=== PATIENT | male | born 1985 | race Two or more races ===

== ENCOUNTER 2016-12-07 10:50 | Emergency (ER) | payer OTHER ==
--- NOTE | 2016-12-07 12:20 | EDDOCDS ---
Physician Documentation [facility] Name: Arnie Del Real Age: 31 yrs Sex: Male : 1985 Arrival Date: 12/07/2016 Time: 10:50 Bed 30 Private MD: NO PRIMARY PHYSICIAN, . Disposition: 12/07/16 12:08 Discharged to Home/Self Care. Impression: Encounter for issue of repeat prescription, Pain in right shoulder - Chronic. - Condition is Stable. - Discharge Instructions: Medicine Refill at the Emergency Department. - Prescriptions for Seroquel 25 mg Oral tablet - take 1 tablet by ORAL route 3 times per day; 30 tablet. gabapentin 600 mg Oral tablet - take 1 tablet by ORAL route 3 times per day; 30 tablet. Symbicort 80- 4.5 mcg/actuation Inhalation HFA aerosol inhaler - inhale 2 puff by INHALATION route 2 times per day; 1 Inhaler. Hydroxyzine HCl 50 mg Oral Tablet - take 1 tablet by ORAL route 2 times per day As needed; 20 tablet. Lisinopril 5 mg Oral Tablet - take 1 tablet by ORAL route once daily; 30 tablet. Albuterol Sulfate 90 mcg/actuation Inhalation HFA Aerosol Inhaler - inhale 2 puff by INHALATION route every 4 hours As needed; 1 Inhaler. - Medication Reconciliation, Local Pharmacy Hours, Referral List Call for Appointment form. - [facility] ; When: 1 - 2 days; Reason: Recheck today's complaints, Continuance of care. Follow up: Emergency Department; Reason: Worsening of conditions. Follow up: Orthopaedics, [facility]; When: Call to arrange an appointment; Reason: Further diagnostic work-up, Recheck today's complaints, Continuance of care. - Problem is new. - Symptoms have improved. Historical: - Allergies: PENICILLINS; Ceclor; - Home Meds: 1. gabapentin 600 mg Oral Tb24 1 tabs three times a day needs refill 2. Seroquel 25 mg Oral tab 1 tab 3 times per day needs refill 3. Symbicort 80-4.5 mcg/actuation inhalation HFAA 2 times per day needs refill 4. ventolin inhaler as needed 5. lisinopril 5 mg Oral tab 1 tab once daily 6. hydroxyzine HCl 50 mg Oral tab twice a day prn - PMHx: Anxiety; Asthma; Hypertension; Seasonal Allergies; - PSHx: pilinoidal cystectomies; - Social history: Smoking status: Patient uses tobacco products, current every day smoker. No barriers to communication noted, The patient speaks fluent Georgian, Speaks appropriately for age. - Family history: No immediate family members are acutely ill. - : The pt / caregiver states he / she is not on anticoagulants. Home medication list is obtained from the patient. - Exposure Risk Screening:: None identified. Vital Signs: 12/07 10:52 BP 164 / 96; Pulse 110; Resp 20; Temp 98.3(O); Pulse Ox 99% on R/A; Weight 113.4 kg / elp 250 lbs (R); Height 5 ft. 8 in. (172.72 cm) (R); Pain 7/10; 12:18 BP 152 / 94; Pulse 96; Resp 20; Temp 98.1(T); Pulse Ox 99% on R/A; Pain 0/10; dwg 10:52 Body Mass Index 38.01 (113.40 kg, 172.72 cm) elp MDM: 11:27 REGULAR DIET PLASTIC WILBURN+DIET ordered. EDMS 12:07 Financial registration complete. 12:10 Recheck B/P ordered. ef1 Signatures: Dispatcher MedHost Sharath Grant RN RN dwg Michelson, Staci, RN RN srm Ganter, LoriLee, Reg Reg lg Mckenzie Corbin, PA-C PACarmina ef1 MTDD
--- NOTE | 2016-12-07 12:20 | EDDOCDS ---
Nurse's Notes [facility] Name: Arnie Del Real Age: 31 yrs Sex: Male : 1985 Arrival Date: 12/07/2016 Time: 10:50 Bed 30 Private MD: NO PRIMARY PHYSICIAN, . Diagnosis: Encounter for issue of repeat prescription;Pain in right shoulder-Chronic Presentation: 12/07 10:55 Presenting complaint: Patient states: right shoulder pain for a long time. was given srm gabapentin but has run out of meds ( multiple). has appt dec 30. for meds refill .pt states he is a recovering addict. recently moved here from [place]. . has been out of his anxiety meds and gabapentin a few days and states his anxiety is getting worse but denies SI or HI. Adult Sepsis Screening: The patient does not have new or worsening altered mentation. Patient's respiratory rate is less than 22. Systolic blood pressure is greater than 100. Patient has a qSOFA score of 0- Negative Sepsis Screen. Suicide/Homicide risk assessment- Patient denies SI and HI but presents with another emotional, behavioral or other mental health complaint. Status: Patient is not a creative services specialist or dependent. Transition of care: patient was not received from another setting of care. 10:55 Acuity: SIRIA Level 5 srm 10:55 Method Of Arrival: Walkin/Carried/Asstd [facility] Triage Assessment: 11:00 General: Appears in no apparent distress, Behavior is appropriate for age, cooperative. srm Pain: Pain currently is 7 out of 10 on a pain scale. 11:01 Pt Declines HIV testing. srm Historical: - Allergies: PENICILLINS; Ceclor; - Home Meds: 1. gabapentin 600 mg Oral Tb24 1 tabs three times a day needs refill 2. Seroquel 25 mg Oral tab 1 tab 3 times per day needs refill 3. Symbicort 80-4.5 mcg/actuation inhalation HFAA 2 times per day needs refill 4. ventolin inhaler as needed 5. lisinopril 5 mg Oral tab 1 tab once daily 6. hydroxyzine HCl 50 mg Oral tab twice a day prn - PMHx: Anxiety; Asthma; Hypertension; Seasonal Allergies; - PSHx: pilinoidal cystectomies; - Social history: Smoking status: Patient uses tobacco products, current every day smoker. No barriers to communication noted, The patient speaks fluent Pashto, Speaks appropriately for age. - Family history: No immediate family members are acutely ill. - : The pt / caregiver states he / she is not on anticoagulants. Home medication list is obtained from the patient. - Exposure Risk Screening:: None identified. Screenin:18 Screening information is obtained from the patient. Fall risk: No risks identified. dwg Assistance ADL's: requires no assistance with activities of daily living. Abuse/DV Screen: The patient / caregiver reports he/she is: not in a situation that causes fear, pain or injury. Nutritional screening: No deficits noted. Advance Directives: Currently, there is no health care proxy. There is no active DNR order. There is no living will. There is no Power of Carpenter Repairer. Advance directive information has not previously been placed in an [facility] medical record. Further advance directive information is declined. home support is adequate. Assessment: 12:18 General: Appears in no apparent distress, comfortable, Behavior is cooperative, dwg pleasant. Pain: Denies pain. Neurological: Level of Consciousness is awake, alert, Oriented to person, place, time. Respiratory: Airway is patent Respiratory effort is even, unlabored, Respiratory pattern is regular, symmetrical, Breath sounds are clear bilaterally. Vital Signs: 10:52 BP 164 / 96; Pulse 110; Resp 20; Temp 98.3(O); Pulse Ox 99% on R/A; Weight 113.4 kg elp (R); Height 5 ft. 8 in. (172.72 cm) (R); Pain 7/10; 12:18 BP 152 / 94; Pulse 96; Resp 20; Temp 98.1(T); Pulse Ox 99% on R/A; Pain 0/10; dwg 10:52 Body Mass Index 38.01 (113.40 kg, 172.72 cm) [facility] Vitals: 10:52 Log In Time: December 07, 2016 at 10:45. [facility] ED Course: 10:51 Patient visited by Irina Tavarez PCA. elp 10:51 NO PRIMARY PHYSICIAN, . is Private Physician. elp 10:51 Patient moved to Waiting elp 10:53 Patient visited by Irina Tavarez PCA. elp 10:53 Patient moved to Pre RCE elp 10:57 Triage Initiated srm 11:01 Patient moved to 30 [facility] 11:40 Mckenzie Corbin [facility] ef1 11:40 Malick Candelaria MD is Attending Physician. ef1 11:40 Patient visited by Mckenzie Corbin PA-C. ef1 12:08 [facility] is Referral Physician. [facility]. ef1 12:19 The patient / caregiver is instructed regarding the plan of care and ED course. dwg 12:19 No IV's were initiated during this patient's visit. No procedures done that require dwg assistance. Order Results: There are currently no results for this order. Outcome: 12:08 Discharge ordered by Provider. ef1 12:19 Discharge Assessment: Patient awake, alert and oriented x 3. No cognitive and/or dwg functional deficits noted. Patient verbalized understanding of disposition instructions. patient administered narcotics - no. The following High Risk Discharge criteria are identified: None. Discharged to home ambulatory. Condition: good Condition: stable. No special radiology studies were completed. Property sent home with patient. 12:19 Patient left the ED. dwg Signatures: Sharath Dillard, RN RN dwg Brea Anthony RN RN [facility] Mckenzie Corbin PA-C PA-C ef1 Irina Tavarez, LONNIE FILLER SIFTER HELPER elp MTDD
--- NOTE | 2016-12-09 13:20 | EDDOCDS ---
Physician Documentation [facility] Name: Arnie Duran Age: 31 yrs Sex: Male : 1985 Arrival Date: 12/07/2016 Time: 10:50 Bed 30 Private MD: NO PRIMARY PHYSICIAN, . Disposition: 12/07/16 12:08 Discharged to Home/Self Care. Impression: Encounter for issue of repeat prescription, Pain in right shoulder - Chronic. - Condition is Stable. - Discharge Instructions: Medicine Refill at the Emergency Department. - Prescriptions for Seroquel 25 mg Oral tablet - take 1 tablet by ORAL route 3 times per day; 30 tablet. gabapentin 600 mg Oral tablet - take 1 tablet by ORAL route 3 times per day; 30 tablet. Symbicort 80- 4.5 mcg/actuation Inhalation HFA aerosol inhaler - inhale 2 puff by INHALATION route 2 times per day; 1 Inhaler. Hydroxyzine HCl 50 mg Oral Tablet - take 1 tablet by ORAL route 2 times per day As needed; 20 tablet. Lisinopril 5 mg Oral Tablet - take 1 tablet by ORAL route once daily; 30 tablet. Albuterol Sulfate 90 mcg/actuation Inhalation HFA Aerosol Inhaler - inhale 2 puff by INHALATION route every 4 hours As needed; 1 Inhaler. - Medication Reconciliation, Local Pharmacy Hours, Referral List Call for Appointment form. - [facility] ; When: 1 - 2 days; Reason: Recheck today's complaints, Continuance of care. Follow up: Emergency Department; Reason: Worsening of conditions. Follow up: Orthopaedics, [facility]; When: Call to arrange an appointment; Reason: Further diagnostic work-up, Recheck today's complaints, Continuance of care. - Problem is new. - Symptoms have improved. Historical: - Allergies: PENICILLINS; Ceclor; - Home Meds: 1. gabapentin 600 mg Oral Tb24 1 tabs three times a day needs refill 2. Seroquel 25 mg Oral tab 1 tab 3 times per day needs refill 3. Symbicort 80-4.5 mcg/actuation inhalation HFAA 2 times per day needs refill 4. ventolin inhaler as needed 5. lisinopril 5 mg Oral tab 1 tab once daily 6. hydroxyzine HCl 50 mg Oral tab twice a day prn - PMHx: Anxiety; Asthma; Hypertension; Seasonal Allergies; - PSHx: pilinoidal cystectomies; - Social history: Smoking status: Patient uses tobacco products, current every day smoker. No barriers to communication noted, The patient speaks fluent Mauritian, Speaks appropriately for age. - Family history: No immediate family members are acutely ill. - : The pt / caregiver states he / she is not on anticoagulants. Home medication list is obtained from the patient. - Exposure Risk Screening:: None identified. Vital Signs: 12/07 10:52 BP 164 / 96; Pulse 110; Resp 20; Temp 98.3(O); Pulse Ox 99% on R/A; Weight 113.4 kg / elp 250 lbs (R); Height 5 ft. 8 in. (172.72 cm) (R); Pain 7/10; 12:18 BP 152 / 94; Pulse 96; Resp 20; Temp 98.1(T); Pulse Ox 99% on R/A; Pain 0/10; dwg 10:52 Body Mass Index 38.01 (113.40 kg, 172.72 cm) elp MDM: 11:27 REGULAR DIET PLASTIC WILBURN+DIET ordered. EDMS 12:07 Financial registration complete. lg 12:10 Recheck B/P ordered. ef1 12:26 [facility] Payment Agreement was scanned into EventWith and attached to record. lg 14:36 T-Sheet-- Draft Copy was scanned into EventWith and attached to record. gb Signatures: Dispatcher MedHost EDND Sharath Dillard RN RN Brea Chin RN RN [facility] Aimee Cagle, Reg Reg gb Anabelle Lopez, Reg Reg lg Mckenzie Corbin, PA-C PA-C ef1 The chart was reviewed and I authenticate all verbal orders and agree with the evaluation and treatment provided.Attachments: 12:26 [facility] Payment Agreement lg 14:36 T-Sheet-- Draft Copy gb Chart Complete MTDD
--- NOTE | 2016-12-09 13:20 | EDDOCDS ---
Nurse's Notes [facility] Name: Arnie Duran Age: 31 yrs Sex: Male : 1985 Arrival Date: 12/07/2016 Time: 10:50 Bed 30 Private MD: NO PRIMARY PHYSICIAN, . Diagnosis: Encounter for issue of repeat prescription;Pain in right shoulder-Chronic Presentation: 12/07 10:55 Presenting complaint: Patient states: right shoulder pain for a long time. was given srm gabapentin but has run out of meds ( multiple). has appt dec 30. for meds refill .pt states he is a recovering addict. recently moved here from [place]. . has been out of his anxiety meds and gabapentin a few days and states his anxiety is getting worse but denies SI or HI. Adult Sepsis Screening: The patient does not have new or worsening altered mentation. Patient's respiratory rate is less than 22. Systolic blood pressure is greater than 100. Patient has a qSOFA score of 0- Negative Sepsis Screen. Suicide/Homicide risk assessment- Patient denies SI and HI but presents with another emotional, behavioral or other mental health complaint. Status: Patient is not a service dismantler or dependent. Transition of care: patient was not received from another setting of care. 10:55 Acuity: SIRIA Level 5 [facility] 10:55 Method Of Arrival: Walkin/Carried/Asstd [facility] Triage Assessment: 11:00 General: Appears in no apparent distress, Behavior is appropriate for age, cooperative. srm Pain: Pain currently is 7 out of 10 on a pain scale. 11:01 Pt Declines HIV testing. srm Historical: - Allergies: PENICILLINS; Ceclor; - Home Meds: 1. gabapentin 600 mg Oral Tb24 1 tabs three times a day needs refill 2. Seroquel 25 mg Oral tab 1 tab 3 times per day needs refill 3. Symbicort 80-4.5 mcg/actuation inhalation HFAA 2 times per day needs refill 4. ventolin inhaler as needed 5. lisinopril 5 mg Oral tab 1 tab once daily 6. hydroxyzine HCl 50 mg Oral tab twice a day prn - PMHx: Anxiety; Asthma; Hypertension; Seasonal Allergies; - PSHx: pilinoidal cystectomies; - Social history: Smoking status: Patient uses tobacco products, current every day smoker. No barriers to communication noted, The patient speaks fluent Indonesian, Speaks appropriately for age. - Family history: No immediate family members are acutely ill. - : The pt / caregiver states he / she is not on anticoagulants. Home medication list is obtained from the patient. - Exposure Risk Screening:: None identified. Screenin:18 Screening information is obtained from the patient. Fall risk: No risks identified. dwg Assistance ADL's: requires no assistance with activities of daily living. Abuse/DV Screen: The patient / caregiver reports he/she is: not in a situation that causes fear, pain or injury. Nutritional screening: No deficits noted. Advance Directives: Currently, there is no health care proxy. There is no active DNR order. There is no living will. There is no Power of Cosmetics Machine Operator. Advance directive information has not previously been placed in an [facility] medical record. Further advance directive information is declined. home support is adequate. Assessment: 12:18 General: Appears in no apparent distress, comfortable, Behavior is cooperative, dwg pleasant. Pain: Denies pain. Neurological: Level of Consciousness is awake, alert, Oriented to person, place, time. Respiratory: Airway is patent Respiratory effort is even, unlabored, Respiratory pattern is regular, symmetrical, Breath sounds are clear bilaterally. Vital Signs: 10:52 BP 164 / 96; Pulse 110; Resp 20; Temp 98.3(O); Pulse Ox 99% on R/A; Weight 113.4 kg elp (R); Height 5 ft. 8 in. (172.72 cm) (R); Pain 7/10; 12:18 BP 152 / 94; Pulse 96; Resp 20; Temp 98.1(T); Pulse Ox 99% on R/A; Pain 0/10; dwg 10:52 Body Mass Index 38.01 (113.40 kg, 172.72 cm) [facility] Vitals: 10:52 Log In Time: December 07, 2016 at 10:45. [facility] ED Course: 10:51 Patient visited by Irina Tavarez PCA. elp 10:51 NO PRIMARY PHYSICIAN, . is Private Physician. elp 10:51 Patient moved to Waiting elp 10:53 Patient visited by Irina Tavarez PCA. elp 10:53 Patient moved to Pre RCE elp 10:57 Triage Initiated srm 11:01 Patient moved to 30 srm 11:40 [facility]ckenzie Corbin [facility] ef[facility] 11:40 Malick Candelaria MD is Attending Physician. ef1 11:40 Patient visited by Mckenzie Corbin PA-C. ef1 12:08 [facility] is Referral Physician. ef1 12:[facility] ef1 12:19 The patient / caregiver is instructed regarding the plan of care and ED course. dwg 12:19 No IV's were initiated during this patient's visit. No procedures done that require dwg assistance. 12:25 Patient name changed from Arnie\S\\S\D'hondt\S\ to Arnie\S\Cirilo\S\D'hondt. EDMS 12:26 [facility] Payment Agreement was scanned into [employer] and attached to record. lg 14:36 T-Sheet-- Draft Copy was scanned into [employer] and attached to record. gb 15:21 Patient name changed from Arnie\S\Cirilo\S\D'hondt\S\ to Arnie\S\Cirilo\S\Dhondt. EDMS Order Results: There are currently no results for this order. Outcome: 12:08 Discharge ordered by Provider. ef1 12:19 Discharge Assessment: Patient awake, alert and oriented x 3. No cognitive and/or dwg functional deficits noted. Patient verbalized understanding of disposition instructions. patient administered narcotics - no. The following High Risk Discharge criteria are identified: None. Discharged to home ambulatory. Condition: good Condition: stable. No special radiology studies were completed. Property sent home with patient. 12:19 Patient left the ED. dwg Signatures: Dispatcher MedHost EDMS Sharath Dillard, MARLENY FARMER dwBrea Chin RN RN [facility] Barrejit, Aimee, Reg Reg gb Anabelle Lopez, Reg Reg lg Mckenzie Corbin PA-C PA-C ef1 Irina Tavarez, LONNIE OFFICE MACHINE INSPECTOR elp Chart Complete MTDD
--- NOTE | 2016-12-09 13:20 | EDDOCDS ---
Physician Documentation [facility] Name: Arnie Duran Age: 31 yrs Sex: Male : 1985 Arrival Date: 12/07/2016 Time: 10:50 Bed 30 Private MD: NO PRIMARY PHYSICIAN, . Disposition: 12/07/16 12:08 Discharged to Home/Self Care. Impression: Encounter for issue of repeat prescription, Pain in right shoulder - Chronic. - Condition is Stable. - Discharge Instructions: Medicine Refill at the Emergency Department. - Prescriptions for Seroquel 25 mg Oral tablet - take 1 tablet by ORAL route 3 times per day; 30 tablet. gabapentin 600 mg Oral tablet - take 1 tablet by ORAL route 3 times per day; 30 tablet. Symbicort 80- 4.5 mcg/actuation Inhalation HFA aerosol inhaler - inhale 2 puff by INHALATION route 2 times per day; 1 Inhaler. Hydroxyzine HCl 50 mg Oral Tablet - take 1 tablet by ORAL route 2 times per day As needed; 20 tablet. Lisinopril 5 mg Oral Tablet - take 1 tablet by ORAL route once daily; 30 tablet. Albuterol Sulfate 90 mcg/actuation Inhalation HFA Aerosol Inhaler - inhale 2 puff by INHALATION route every 4 hours As needed; 1 Inhaler. - Medication Reconciliation, Local Pharmacy Hours, Referral List Call for Appointment form. - [facility] ; When: 1 - 2 days; Reason: Recheck today's complaints, Continuance of care. Follow up: Emergency Department; Reason: Worsening of conditions. Follow up: Orthopaedics, [facility]; When: Call to arrange an appointment; Reason: Further diagnostic work-up, Recheck today's complaints, Continuance of care. - Problem is new. - Symptoms have improved. Historical: - Allergies: PENICILLINS; Ceclor; - Home Meds: 1. gabapentin 600 mg Oral Tb24 1 tabs three times a day needs refill 2. Seroquel 25 mg Oral tab 1 tab 3 times per day needs refill 3. Symbicort 80-4.5 mcg/actuation inhalation HFAA 2 times per day needs refill 4. ventolin inhaler as needed 5. lisinopril 5 mg Oral tab 1 tab once daily 6. hydroxyzine HCl 50 mg Oral tab twice a day prn - PMHx: Anxiety; Asthma; Hypertension; Seasonal Allergies; - PSHx: pilinoidal cystectomies; - Social history: Smoking status: Patient uses tobacco products, current every day smoker. No barriers to communication noted, The patient speaks fluent Cambodian, Speaks appropriately for age. - Family history: No immediate family members are acutely ill. - : The pt / caregiver states he / she is not on anticoagulants. Home medication list is obtained from the patient. - Exposure Risk Screening:: None identified. Vital Signs: 12/07 10:52 BP 164 / 96; Pulse 110; Resp 20; Temp 98.3(O); Pulse Ox 99% on R/A; Weight 113.4 kg / elp 250 lbs (R); Height 5 ft. 8 in. (172.72 cm) (R); Pain 7/10; 12:18 BP 152 / 94; Pulse 96; Resp 20; Temp 98.1(T); Pulse Ox 99% on R/A; Pain 0/10; dwg 10:52 Body Mass Index 38.01 (113.40 kg, 172.72 cm) elp MDM: 11:27 REGULAR DIET PLASTIC WILBURN+DIET ordered. EDMS 12:07 Financial registration complete. lg 12:10 Recheck B/P ordered. ef1 12:26 [facility] Payment Agreement was scanned into DigiPath and attached to record. lg 14:36 T-Sheet-- Draft Copy was scanned into DigiPath and attached to record. gb Signatures: Dispatcher Med[employer] EDCO Sharath Dillard RN RN Brea Chin RN RN [facility] Aimee Cagle, Reg Reg gb Anabelle Lopez, Reg Reg lg Mckenzie Corbin, PA-C PA-C ef1 The chart was reviewed and I authenticate all verbal orders and agree with the evaluation and treatment provided.Attachments: 12:26 [facility] Payment Agreement lg 14:36 T-Sheet-- Draft Copy gb Chart Complete MTDD
== END 2016-12-07 12:19 | disposition home or self-care (01) ==
LOC: M ED 10:50
DX: Z76.0 Encounter for issue of repeat prescription (principal); M25.511 Pain in right shoulder; F41.9 Anxiety disorder, unspecified; J45.909 Unspecified asthma, uncomplicated; I10 Essential (primary) hypertension; F17.210 Nicotine dependence, cigarettes, uncomplicated; Z79.899 Other long term (current) drug therapy; Z88.0 Allergy status to penicillin

== ENCOUNTER → 2016-12-16 | Outpatient (CLI) | payer OTHER ==
[2016-12-16 08:20] LABS: ANION GAP 8 MEQ/L (8-16); BLOOD UREA NITROGEN 8 MG/DL (7-18); CALCIUM LEVEL 8.9 MG/DL (8.5-10.1); CARBON DIOXIDE LEVEL 30 MEQ/L (21-32); CHLORIDE LEVEL 103 MEQ/L (98-107); CHOLESTEROL LEVEL 205 MG/DL (<200); CREATININE FOR GFR 1.05 MG/DL (0.70-1.30); GLOMERULAR FILTRATION RATE > 60.0 (>60); GLUCOSE, FASTING 99 MG/DL (70-105); POTASSIUM SERUM 4.4 MEQ/L (3.5-5.1); SODIUM LEVEL 141 MEQ/L (136-145); TRIGLYCERIDES LEVEL 312 MG/DL (<150)
== END ==
LOC: M LAB 06:53
PROVIDERS: ATTEND Family Medicine
DX: R07.9 Chest pain, unspecified (principal)